=== PATIENT | male | born 1950 | race Caucasian/White ===

== ENCOUNTER → 2018-04-03 14:59 | Outpatient (CLI) | payer MEDICARE, OTHER, SELFPAY ==
[2018-04-03 16:45] LABS: Prostate Specific Antigen 0.459 ng/mL (0.10-4.00)
== END ==
PROVIDERS: Family Provider Internal Medicine; PCP Internal Medicine; Visit Provider Radiology Radiation Oncology
DX: C61 Malignant neoplasm of prostate (principal)
CPT/HCPCS: 36415; 84153

== ENCOUNTER → 2019-01-30 07:58 | Outpatient (CLI) | payer MEDICARE, OTHER, SELFPAY ==
[2019-01-30 09:48] LABS: Hemoglobin A1C% w Est Avg Glu 7.1 % (4.0-6.0)
[2019-01-30 10:05] LABS: Alanine Aminotransferase 22 IU/L (21-72); Albumin 4.1 g/dL (3.5-5.0); Albumin Globulin Ratio 1.5 (1.0-2.8); Alkaline Phosphatase 75 U/L (38-126); Aspartate Aminotransferase 16 IU/L (17-59); Bilirubin Total 1.2 mg/dL (0.2-1.3); Blood Urea Nitrogen 19 mg/dL (9-20); Calcium 9.2 mg/dL (8.4-10.2); Carbon Dioxide 28 mmol/L (22-32); Chloride 102 mmol/L (98-107); Cholesterol 158 mg/dL (140-199); Estimated Glomerular Filt Rate > 60.0 mL/min (>60); Globulin 2.8 g/dL (1.7-4.1); Glucose 178 mg/dL (80-110); HDL Cholesterol 55 mg/dL (40-60); HEMOLYSIS < 15 (0-50); LDL Cholesterol Calculated 72 mg/dL (<100); Potassium 4.8 mmol/L (3.4-5.1); Sodium 138 mmol/L (137-145); Total Protein 6.9 g/dL (6.3-8.2); Triglycerides 156 mg/dL (35-150)
== END ==
PROVIDERS: PCP Internal Medicine; Visit Provider Internal Medicine
DX: C61 Malignant neoplasm of prostate (principal); E11.9 Type 2 diabetes mellitus without complications; E78.5 Hyperlipidemia, unspecified; I10 Essential (primary) hypertension
CPT/HCPCS: 36415; 80053; 80061; 83036; 84153

== ENCOUNTER → 2020-02-11 08:57 | Outpatient (CLI) | payer MEDICARE, OTHER, SELFPAY ==
[2020-02-11 09:54] LABS: Hemoglobin A1C% w Est Avg Glu 9.2 % (4.0-6.0)
[2020-02-11 10:19] LABS: Alanine Aminotransferase 48 IU/L (<50); Albumin 4.2 g/dL (3.5-5.0); Albumin Globulin Ratio 1.4 (1.0-2.8); Alkaline Phosphatase 85 U/L (38-126); Aspartate Aminotransferase 41 IU/L (17-59); BUN Creatinine Ratio 16.2 (6-22); Bilirubin Total 0.9 mg/dL (0.2-1.3); Blood Urea Nitrogen 18 mg/dL (9-20); Calcium 9.1 mg/dL (8.4-10.2); Carbon Dioxide 25 mmol/L (22-32); Chloride 101 mmol/L (98-107); Cholesterol 213 mg/dL (140-199); Estimated Glomerular Filt Rate > 60.0 mL/min (>60); Glucose 258 mg/dL (80-110); HDL Cholesterol 42 mg/dL (40-60); HEMOLYSIS < 15 (0-50); LDL Cholesterol Calculated 115 mg/dL (<100); Potassium 4.4 mmol/L (3.4-5.1); Sodium 137 mmol/L (137-145); Total Protein 7.2 g/dL (6.3-8.2); Triglycerides 282 mg/dL (35-150)
[2020-02-11 10:49] LABS: Prostate Specific Antigen 1.54 ng/mL (0.10-4.00)
== END ==
PROVIDERS: PCP Internal Medicine; Referring Provider Internal Medicine; Visit Provider Internal Medicine
DX: C61 Malignant neoplasm of prostate (principal); E11.9 Type 2 diabetes mellitus without complications; E78.5 Hyperlipidemia, unspecified; I10 Essential (primary) hypertension
CPT/HCPCS: 36415; 80053; 80061; 83036; 84153

== ENCOUNTER → 2020-05-06 13:37 | Outpatient (CLI) | payer MEDICARE, OTHER, SELFPAY ==
[2020-05-06 14:43] LABS: Hemoglobin A1C% w Est Avg Glu 8.6 % (4.0-6.0)
[2020-05-06 15:16] LABS: BUN Creatinine Ratio 18.6 (6-22); Blood Urea Nitrogen 19 mg/dL (9-20); Calcium 9.3 mg/dL (8.4-10.2); Carbon Dioxide 28 mmol/L (22-32); Chloride 102 mmol/L (98-107); Estimated Glomerular Filt Rate > 60.0 mL/min (>60); Glucose 180 mg/dL (80-110); HEMOLYSIS < 15 (0-50); Potassium 5.1 mmol/L (3.4-5.1); Sodium 137 mmol/L (137-145)
== END ==
PROVIDERS: PCP Internal Medicine; Referring Provider Internal Medicine; Visit Provider Internal Medicine
DX: E11.65 Type 2 diabetes mellitus with hyperglycemia (principal)
CPT/HCPCS: 36415; 80048; 83036

== ENCOUNTER → 2020-08-17 11:21 | Outpatient (CLI) | payer MEDICARE, OTHER, SELFPAY ==
[2020-08-17 12:05] LABS: BUN Creatinine Ratio 16.7 (6-22); Blood Urea Nitrogen 18 mg/dL (9-20); Calcium 8.9 mg/dL (8.4-10.2); Carbon Dioxide 29 mmol/L (22-32); Chloride 101 mmol/L (98-107); Estimated Glomerular Filt Rate > 60.0 mL/min (>60); Glucose 234 mg/dL (80-110); HEMOLYSIS < 15 (0-50); Potassium 4.8 mmol/L (3.4-5.1); Sodium 135 mmol/L (137-145)
[2020-08-17 12:10] LABS: Hemoglobin A1C% w Est Avg Glu 8.4 % (4.0-6.0)
== END ==
PROVIDERS: PCP Internal Medicine; Referring Provider Internal Medicine; Visit Provider Internal Medicine
DX: E11.65 Type 2 diabetes mellitus with hyperglycemia (principal); I10 Essential (primary) hypertension
CPT/HCPCS: 36415; 80048; 83036

== ENCOUNTER → 2020-11-12 08:49 | Outpatient (CLI) | payer MEDICARE, OTHER, SELFPAY ==
[2020-11-12 10:45] LABS: Alanine Aminotransferase 30 IU/L (<50); Albumin Globulin Ratio 1.3 (1.0-2.8); Alkaline Phosphatase 77 U/L (38-126); Aspartate Aminotransferase 29 IU/L (17-59); BUN Creatinine Ratio 15.2 (6-22); Bilirubin Total 1.3 mg/dL (0.2-1.3); Blood Urea Nitrogen 17 mg/dL (9-20); Calcium 9.1 mg/dL (8.4-10.2); Carbon Dioxide 28 mmol/L (22-32); Chloride 102 mmol/L (98-107); Cholesterol 184 mg/dL (140-199); Estimated Glomerular Filt Rate > 60.0 mL/min (>60); Globulin 3.2 g/dL (1.7-4.1); Glucose 219 mg/dL (80-110); HDL Cholesterol 48 mg/dL (40-60); HEMOLYSIS < 15 (0-50); LDL Cholesterol Calculated 100 mg/dL (<100); Potassium 4.5 mmol/L (3.4-5.1); Sodium 136 mmol/L (137-145); Total Protein 7.2 g/dL (6.3-8.2); Triglycerides 179 mg/dL (35-150)
[2020-11-12 14:29] LABS: Hemoglobin A1C% w Est Avg Glu 8.9 % (4.0-6.0)
== END ==
PROVIDERS: PCP Internal Medicine; Referring Provider Internal Medicine; Visit Provider Internal Medicine
DX: E11.65 Type 2 diabetes mellitus with hyperglycemia (principal); E78.5 Hyperlipidemia, unspecified; I10 Essential (primary) hypertension
CPT/HCPCS: 36415; 80053; 80061; 83036

== ENCOUNTER → 2020-11-20 10:17 | Outpatient (CLI) | payer MEDICARE, OTHER, SELFPAY ==
[2020-11-20] MEDS: COVID-19 VACC #1, MRNA(MOD) 100 MCG/0.5 ML VIAL IM (10:28)
== END ==
PROVIDERS: PCP Internal Medicine; Visit Provider Internal Medicine
DX: Z23 Encounter for immunization (principal)
CPT/HCPCS: 0011A; 91301

== ENCOUNTER → 2020-12-18 10:02 | Outpatient (CLI) | payer MEDICARE, OTHER, SELFPAY ==
[2020-12-18] MEDS: COVID-19 VACC #2, MRNA(MOD) 100 MCG/0.5 ML VIAL IM (10:14)
== END ==
PROVIDERS: PCP Internal Medicine; Visit Provider Internal Medicine
DX: Z23 Encounter for immunization (principal)
CPT/HCPCS: 0012A; 91301

== ENCOUNTER → 2021-01-13 11:11 | Outpatient (CLI) | payer MEDICARE, OTHER, SELFPAY ==
[2021-01-13 13:31] LABS: Hemoglobin A1C% w Est Avg Glu 9.5 % (4.0-6.0)
[2021-01-13 13:50] LABS: BUN Creatinine Ratio 15.9 (6-22); Blood Urea Nitrogen 17 mg/dL (9-20); Calcium 9.3 mg/dL (8.4-10.2); Carbon Dioxide 25 mmol/L (22-32); Chloride 102 mmol/L (98-107); Estimated Glomerular Filt Rate > 60.0 mL/min (>60); Glucose 230 mg/dL (80-110); HEMOLYSIS < 15 (0-50); Sodium 136 mmol/L (137-145)
== END ==
PROVIDERS: PCP Internal Medicine; Referring Provider Internal Medicine; Visit Provider Internal Medicine
DX: E11.9 Type 2 diabetes mellitus without complications (principal); E78.5 Hyperlipidemia, unspecified; I10 Essential (primary) hypertension
CPT/HCPCS: 36415; 80048; 83036

== ENCOUNTER → 2021-04-07 11:31 | Outpatient (CLI) | payer MEDICARE, OTHER, SELFPAY ==
[2021-04-07 13:33] LABS: Hemoglobin A1C% w Est Avg Glu 7.1 % (4.0-6.0)
[2021-04-07 13:55] LABS: BUN Creatinine Ratio 17.9 (6-22); Blood Urea Nitrogen 20 mg/dL (9-20); Calcium 9.3 mg/dL (8.4-10.2); Carbon Dioxide 25 mmol/L (22-32); Chloride 107 mmol/L (98-107); Estimated Glomerular Filt Rate > 60.0 mL/min (>60); Glucose 148 mg/dL (80-110); HEMOLYSIS < 15 (0-50); Potassium 4.8 mmol/L (3.4-5.1); Sodium 139 mmol/L (137-145)
== END ==
PROVIDERS: PCP Internal Medicine; Referring Provider Internal Medicine; Visit Provider Internal Medicine
DX: E11.9 Type 2 diabetes mellitus without complications (principal); I10 Essential (primary) hypertension
CPT/HCPCS: 36415; 80048; 83036

== ENCOUNTER 2021-05-25 11:02 | Emergency (ER) | payer MEDICARE, OTHER, SELFPAY ==
[2021-05-25] VITALS (9 sets, daily range): BP systolic 145–162; BP diastolic 63–74; PULSE 64–75; RESP 16–17; TEMP 36.9; O2SAT 95–97; BMI 38.0
--- NOTE | 2021-05-25 11:19 | DI.RAD.S_ITS ---
PROCEDURE: XR CHEST 1V INDICATIONS: Coughing up blood TECHNIQUE: One view of the chest was acquired. COMPARISON: [facility], CT, PE STUDY (CTA CHEST), 02/17/2014, 7:56. [facility], CR, CHEST 2 VIEW, 11/23/2011, 10:19. FINDINGS: Surgical changes and devices: None. Lungs and pleura: No large pneumothorax or large pleural effusions are seen. There is a 2 cm poorly defined nodular opacity seen within the left perihilar lung. Mediastinum: Mediastinal contours appear normal. Heart size is normal. Bones and chest wall: No suspicious bony lesions. Age-appropriate bony degenerative changes are seen. Overlying soft tissues appear unremarkable. IMPRESSION: 2 cm left perihilar opacity, which may represent a neoplastic nodule or potentially infection. For this patient's presenting history of hemoptysis, please consider a dedicated chest CT with IV contrast for further evaluation. Dictated by: Israel Morrow M.D. on 05/25/2021 at 10:32 Approved by: Israel Morrow M.D. on 05/25/2021 at 10:34
--- NOTE | 2021-05-25 11:48 | PC.NURSE ---
Patient states he had an episode of coughing and spitting up blood on Monday am. When asked how much blood came up during his coughing spell he states 1/2 cup. When asked to clarify, he states 1/2 cup of blood with no sputum. Symptoms resolved Monday, no issues on Monday but coughing and spitting up blood started again at 0230 this morning. Patient again states he coughed up 1/2 cup of blood this morning. Denies nausea, denies diarrhea. States he got in the hot tub at 0700 this morning and starting coughing up blood again.
[2021-05-25 11:52] LABS: Add Manual Diff / Slide Review NO; Basophils Absolute Auto 100 /uL (0-100); Basophils Percent Auto 0.9 % (0-2); Eosinophils Absolute Auto 100 /uL (0-450); Eosinophils Percent Auto 2.1 % (2-4); Hematocrit 40.3 % (41-53); Hemoglobin 13.2 g/dL (13.5-17.5); Lymphocytes Absolute Auto 1500 /uL (1100-4500); Lymphocytes Percent Auto 25.9 % (25-40); Mean Corpuscular HGB Conc 32.8 % (30-36); Mean Corpuscular Hemoglobin 29.8 PG (26-34); Monocytes Absolute Auto 400 /uL (0-900); Monocytes Percent Auto 6.8 % (3-14); Neutrophils Absolute Auto 3800 /uL (1500-7000); Neutrophils Percent Auto 64.3 % (50-75); Platelet Count 168 X10^3/uL (150-400); Red Blood Cell Count 4.43 X10^6/uL (4.5-5.9); White Blood Cell Count 5.9 X10^3/uL (4.5-11.0)
--- NOTE | 2021-05-25 11:53 | ED_ITS ---
HPI - GI Bleed General Chief complaint: GI Bleed Stated complaint: coughing up blood this morning Time Seen by Provider: 05/25/21 11:19 Source: patient Mode of arrival: Ambulatory Limitations: no limitations History of Present Illness HPI Narrative: Patient is a 71-year-old male. Kti-mxzvbts-xdsdkywwt diabetic. Not on anticoagulation. Does not use nonsteroidal anti-inflammatories on a regular basis was here for evaluation of coughing up blood. He is not vomiting blood. He states that on Monday he had sensations like he needed to clear his throat. He coughed. He states that he coughed up blood at that time. He had no chest pain. No shortness of breath. Things seem to improve. This morning he had a 2nd episode of the symptoms. Reports no change in bowel habits. No fevers. Related Data Home Medications Medication Instructions Recorded Confirmed CA PANTOTHENATE/FOLIC ACID/VIT 1 tab PO QDAY #0 08/17/11 04/19/21 (MULTIVITAMIN) [GLUCOSAMINE CHONDROI] 1 tab PO Q DAY #0 08/17/11 04/19/21 aspirin 81 mg tablet,delayed 162 mg PO Q DAY #0 08/17/11 04/19/21 release Previous Rx's Medication Instructions Recorded Disabled Parking Permit ea #1 03/06/17 metformin 500 mg tablet 1,000 mg PO BIDCC #360 tab 07/14/20 (Glucophage) alprazolam 0.5 mg tablet See Rx Instructions PO TID PRN #30 08/17/20 tab igvrycho-ghxuonjvx-gaypvzmva 3.5 2 - 3 drp OTIC (EAR) TID PRN #10 ml 11/17/20 mg-10,000 unit/mL-1 % ear drops,susp pioglitazone 30 mg tablet 30 mg PO DAILY #90 tab 11/17/20 glipizide 10 mg tablet 10 mg PO BID #60 tab 01/18/21 carvedilol 25 mg tablet (Coreg) 25 mg PO BID #180 tabs 02/09/21 rosuvastatin 20 mg tablet (Crestor) 20 mg PO Q DAY #90 tab 03/24/21 Allergies Allergy/AdvReac Type Severity Reaction Status Date / Time No Known Drug Allergies Allergy Verified 05/25/21 11:11 Review of Systems Constitutional Constitutional: Denies fever(s) Cardiovascular Cardiovascular: Denies chest pain and Denies dyspnea Respiratory Respiratory: Reports as per HPI, Reports cough and Denies dyspnea Gastrointestinal Gastrointestinal: Reports system reviewed and no additional complaints, except as documented, Denies melena, Denies hematochezia, Denies nausea and Denies vomiting Genitourinary Genitourinary: Reports system reviewed and no additional complaints, except as documented Integumentary/Breasts Skin/Breast: Reports system reviewed and no additional complaints, except as documented Hematologic/Lymphatic On Anticoagulants: No Patient History Medical History Diabetic peripheral neuropathy History of adenomatous polyp of colon (07/19/11) Hyperlipidemia (07/19/11) Hypertension (07/19/11) Malignant neoplasm of prostate (08/23/16) Renal cell carcinoma (~2010) Type 2 diabetes mellitus with hyperglycemia Type 2 diabetes mellitus without complication, without long-term current use of insulin (10/04/17) Surgical History (Updated 01/02/18 @ 05:48 by Kayden Doyle MD) History of nephrectomy History of spinal fusion History of vasectomy Status post appendectomy Status post tonsillectomy and adenoidectomy Family History (Updated 08/23/16 @ 00:00 by Conversion Provider) Father Family hx of lung cancer Mother Family history of diabetes mellitus (DM) High cholesterol Heart disease Social History Smoking Status: Former smoker Smoking Status: Former smoker alcohol intake frequency: 0-2 drinks per day Substance Use Type: does not use Exam Initial Vital Signs Initial Vital Signs: Vital Signs Temperature 98.4 F 05/25/21 11:05 Pulse Rate 75 05/25/21 11:05 Respiratory Rate 17 05/25/21 11:05 Blood Pressure 157/73 H 05/25/21 11:05 Pulse Oximetry 96 05/25/21 11:05 Const General: cooperative, healthy appearing, comfortable and well developed Limitations: mental status not altered [facility] Head: normal to inspection and normocephalic Resp Effort & Inspection: normal respiratory effort Auscultation: clear to auscultation bilaterally Cardio Rate: regular rate Rhythm: regular rhythm GI Inspection: normal to inspection and non-distended Palpation: No firm and No tender Back/Spine/Pelvis Back: normal to inspection Skin General: no rashes or lesions noted Lesions: no lesions Rashes: no rashes Neuro General: patient alert, patient awake and patient oriented x3 Extrem General: normal to inspection Psych Appearance: grossly normal and well kempt Course Orders Ordered: Discontinued Medications Sodium Chloride (Normal Saline 0.9%) 1,000 mls @ 500 mls/hr IV BOLUS ONE Stop: 05/25/21 13:52 Last Infusion: 05/25/21 13:57 Dose: 0 mls/hr Documented by: Admin: 05/25/21 13:02 Dose: 500 mls/hr Documented by: JULIAN Vital Signs Vital signs: Vital Signs - 8 hr 05/25/21 11:05 05/25/21 11:08 05/25/21 11:09 Temperature 98.4 F Pulse Rate 75 69 Respiratory Rate 17 Blood Pressure 157/73 H 157/73 H Pulse Oximetry 96 97 05/25/21 11:21 05/25/21 11:30 05/25/21 11:31 Temperature Pulse Rate 68 70 68 Respiratory Rate Blood Pressure 154/74 H 162/74 H Pulse Oximetry 97 96 96 05/25/21 12:00 Temperature Pulse Rate 67 Respiratory Rate Blood Pressure Pulse Oximetry 97 MDM - GI Bleed Lab Data Attestation: I reviewed the patient's lab results. Result diagrams: 05/25/21 11:40 05/25/21 11:40 Labs: Lab Results 05/25/21 05/25/21 05/25/21 Range/Units 11:40 11:40 11:40 WBC 5.9 (4.5-11.0) X10^3/uL RBC 4.43 L (4.5-5.9) X10^6/uL Hgb 13.2 L (13.5-17.5) g/dL Hct 40.3 L (41-53) % MCV 91.0 (80-100) fL MCH 29.8 (26-34) PG MCHC 32.8 (30-36) % RDW 15.0 H (11.6-14.8) % Plt Count 168 (150-400) X10^3/uL Neut % (Auto) 64.3 (50-75) % Lymph % (Auto) 25.9 (25-40) % Milam % (Auto) 6.8 (3-14) % Eos % (Auto) 2.1 (2-4) % Baso % (Auto) 0.9 (0-2) % Neut # (Auto) 3800 (5272-2341) /uL Lymph # (Auto) 1500 (3824-2197) /uL Milam # (Auto) 400 (0-900) /uL Eos # (Auto) 100 (0-450) /uL Baso # (Auto) 100 (0-100) /uL Sodium 138 (137-145) mmol/L Potassium 4.7 (3.4-5.1) mmol/L Chloride 105 (98-107) mmol/L Carbon Dioxide 26 (22-32) mmol/L BUN 16 (9-20) mg/dL Creatinine 0.98 (0.66-1.25) mg/dL Estimated GFR > 60.0 (>60) mL/min BUN/Creatinine Ratio 16.3 (6-22) Glucose 144 H (80-110) mg/dL Calcium 9.2 (8.4-10.2) mg/dL Total Bilirubin 1.5 H (0.2-1.3) mg/dL AST 26 (17-59) IU/L ALT 25 (<50) IU/L Alkaline Phosphatase 72 (38-126) U/L Total Protein 7.5 (6.3-8.2) g/dL Albumin 4.2 (3.5-5.0) g/dL Globulin 3.3 (1.7-4.1) g/dL Albumin/Globulin Ratio 1.3 (1.0-2.8) Blood Type A Positive Antibody Screen Negative Urine Dip Bedside Urine Glucose Negative Bedside Urine Bilirubin - Negative Bedside Urine Ketone - Negative Urine Specific Gill 1.015 Bedside Urine Occult Blood - Negative Bedside Urine pH 6.0 Bedside Urine Protein - Negative Bedside Urine Urobilinogen - Negative Bedside Urine Nitrite - Negative Bedside Urine Leukocytes - Negative Esterase Imaging Data Chest x-ray: Radiologist's Impression: [address] [id number] ReportSigned Patient: Ac May JMR#: [id number]: 9Acct:[id number]/Sex: 71 / MDate of Service: 05/25/21Loc: EDAccession Number: [id number] Procedure: XR chest 1V Ordering Provider: Stevie Lama D.O. PROCEDURE: XR CHEST 1V INDICATIONS: Coughing up blood TECHNIQUE: One view of the chest was acquired. COMPARISON: [facility], CT, PE STUDY (CTA CHEST), 02/17/2014, 7:56. [facility], CR, CHEST 2 VIEW, 11/23/2011, 10:19. FINDINGS: Surgical changes and devices: None. Lungs and pleura: No large pneumothorax or large pleural effusions are seen. There is a 2 cm poorly defined nodular opacity seen within the left perihilar lung. Mediastinum: Mediastinal contours appear normal. Heart size is normal. Bones and chest wall: No suspicious bony lesions. Age-appropriate bony d egenerative changes are seen. Overlying soft tissues appear unremarkable. IMPRESSION: 2 cm left perihilar opacity, which may represent a neoplastic nodule or potentially infection. For this patient's presenting history of hemoptysis, please consider a dedicated chest CT with IV contrast for further evaluation. Dictated by: Israel Morrow M.D. on 05/25/2021 at 10:32 Approved by: Israel Morrow M.D. on 05/25/2021 at 10:34 CT scan - chest: Radiologist's Impression: [address] [id number] Scan ReportSigned Patient: Ac May [facility]#: [id number]: 9Acct:[id number]/Sex: 71 / MDate of Service: 05/25/21Loc: EDAccession Number: [id number] Procedure: CT angio chest PE protocol Ordering Provider: Stevie Lama D.O. PROCEDURE: CT ANGIO CHEST PE PROTOCOL INDICATIONS: Chest pain, shortness of breath, tachycardia TECHNIQUE: After the administration of intravenous contrast, 2 mm thick sections acquired from the pulmonary apices to the posterior costophrenic angles. Maximum intensity projection (MIP) coronal and sagittal reformats were then acquired through the thorax. For radiation dose reduction, the following was used: automated exposure control, adjustment of mA and/or kV according to patient size. COMPARISON: [facility], CR, XR CHEST 1V, 05/25/2021, 11:22. [facility], CT, PE STUDY (CTA CHEST), 02/17/2014, 7:56. [facility], CT, CT CHANCE, 12/03/2015, 13:05. FINDINGS: Image quality: Excellent. Pulmonary arteries: Pulmonary arteries are normal in size, and demonstrate no intraluminal filling defects to suggest central pulmonary embolism. Lungs and pleura: Bilateral pulmonary mass lesions present. Largest on the right measures 2.7 x 3.5 cm in the right lower lobe, the largest on the left measures 1.9 x 1.7 cm. There are greater than 10 pulmonary nodules in total of varying sizes. Mediastinum: Heart size is normal, without pericardial effusion. No mediastinal or hilar adenopathy. Thoracic aorta is normal in caliber and enhancement. Esophagus is normal in caliber, without hiatal hernia. Scattered mediastinal and axillary lymph nodes present without enlargement. Bones and chest wall: Osteolytic metastatic lesion involving the right posterior 4th rib measures 3.1 x 4.5 cm Abdomen: Partially imaged soft tissue mass lesion centered in the left adrenal gland measures 9.6 x 6.7 cm. Partially visualized gallbladder shows small dependent calcified gallstone without CT evidence of acute cholecystitis. IMPRESSION: 1. No evidence of pulmonary embolism, aortic dissection or aneurysm. 2. Bilateral pulmonary masses, left adrenal mass, and right 4th rib osteolytic mass consistent with metastatic disease. 3. Incidental cholelithiasis without CT evidence of acute cholecystitis. Approved by: Spencer Castaneda M.D. on 05/25/2021 at 12:00 ECG Data Attestation: I personally reviewed and interpreted this ECG as follows: Interpretation: Sinus rhythm Ventricular rate is 67 Normal axis Normal QRS Normal QTC No ST T wave changes MDM Narrative Medical decision making narrative: Patient is stable. No respiratory distress. Not anemic. Vital signs unremarkable. CT scan of the chest is concerning for metastatic disease. I did discuss this with him. I suspect that this is why he is having the blood tinged sputum. I also discussed the case with his primary doctor's nurse. They are going to contact the patient to get him in for follow- up within the next couple days. No indication for emergent admission to the hospital. He was told that this is a issue that does need urgent follow-up. He expressed understanding of this. He has had cancer in the past. He had renal cancer which resulted in a nephrectomy and also prostate cancer. He was given strict return precautions and follow-up instructions. He expressed understanding and agreement. Discharge Plan Departure Patient Disposition: Home Clinical Impression: Hemoptysis, Lung mass Instructions: DI for Hemoptysis Activity Restrictions/Additional Instructions: The findings on the CT scan of your lungs today are concerning. They did notice masses in both your lungs. These findings are a concern for malignancy. I did contact your primary doctor's office and you should be receiving a call from them within the next 24 hours. Continue all of your medications as directed. Return to the emergency department for any new or worsening symptoms. Prescriptions: No Action aspirin 81 MG tablet,delayed release (DR/EC) 162 mg PO Q DAY Qty: 0 RF: 0 CA PANTOTHENATE/FOLIC ACID/VIT (MULTIVITAMIN) 1 tab PO QDAY Qty: 0 RF: 0 [GLUCOSAMINE CHONDROI] 1 tab PO Q DAY Qty: 0 RF: 0 Disabled Parking Permit Qty: 1 RF: 0 metformin [Glucophage] 500 mg tablet 1,000 mg PO BIDCC Qty: 360 RF: 3 carvedilol [Coreg] 25 mg tablet 25 mg PO BID Qty: 180 RF: 3 rosuvastatin [Crestor] 20 mg tablet 20 mg PO Q DAY Qty: 90 RF: 3 pioglitazone 30 mg tablet 30 mg PO DAILY Qty: 90 RF: 3 ahhzytrd-obfeqbhbr-HD 3.5-10,000-1 mg/mL-unit/mL-% drops,suspension 2 - 3 drp otic (ear) TID PRN (Reason: Cerumen Impaction) Qty: 10 RF: 3 glipizide 10 mg tablet 10 mg PO BID Qty: 60 RF: 8 alprazolam 0.5 mg tablet See Rx Instructions PO TID PRN (Reason: anxiety) Qty: 30 RF: 2 Referrals: Kayden Doyle MD [Primary Care Provider] -
[2021-05-25 12:19] LABS: Alanine Aminotransferase 25 IU/L (<50); Albumin 4.2 g/dL (3.5-5.0); Albumin Globulin Ratio 1.3 (1.0-2.8); Alkaline Phosphatase 72 U/L (38-126); Aspartate Aminotransferase 26 IU/L (17-59); BUN Creatinine Ratio 16.3 (6-22); Bilirubin Total 1.5 mg/dL (0.2-1.3); Blood Urea Nitrogen 16 mg/dL (9-20); Calcium 9.2 mg/dL (8.4-10.2); Carbon Dioxide 26 mmol/L (22-32); Chloride 105 mmol/L (98-107); Estimated Glomerular Filt Rate > 60.0 mL/min (>60); Globulin 3.3 g/dL (1.7-4.1); Glucose 144 mg/dL (80-110); HEMOLYSIS < 15 (0-50); Potassium 4.7 mmol/L (3.4-5.1); Sodium 138 mmol/L (137-145); Total Protein 7.5 g/dL (6.3-8.2)
[2021-05-25] MEDS: SODIUM CHLORIDE 0.9% 1,000 ML 500 ML IV (13:02)
== END 2021-05-25 13:59 | disposition home or self-care (01) ==
PROVIDERS: Emergency Provider Emergency Medicine; PCP Internal Medicine
DX: R04.2 Hemoptysis (principal); R91.8 Other nonspecific abnormal finding of lung field; R07.9 Chest pain, unspecified
CPT/HCPCS: 36415; 71045; 71275; 80053; 81003; 85025; 86850; 86900; 86901; 93005; 93010; 96360; 99284

== ENCOUNTER → 2021-05-28 14:38 | Outpatient (CLI) | payer MEDICARE, OTHER, SELFPAY ==
[2021-05-28 16:14] LABS: Prostate Specific Antigen 2.06 ng/mL (0.10-4.00)
== END ==
PROVIDERS: PCP Internal Medicine; Referring Provider Internal Medicine; Visit Provider Internal Medicine
DX: C61 Malignant neoplasm of prostate (principal)
CPT/HCPCS: 36415; 84153

== ENCOUNTER → 2021-06-02 12:02 | Outpatient (CLI) | payer MEDICARE, OTHER, SELFPAY ==
--- NOTE | 2021-06-02 12:03 | DI.CT.S_ITS ---
PROCEDURE: CT ABDOMEN PELVIS W CON INDICATIONS: lung masses TECHNIQUE: After the administration of oral and intravenous contrast, axial sections were acquired from the lung bases to the pubic symphysis. Coronal and sagittal reformats were performed. For radiation dose reduction, the following was used: automated exposure control, adjustment of mA and/or kV according to patient size. COMPARISON:[facility], CT, CT ANGIO CHEST PE PROTOCOL, 05/25/2021, 12:30. [facility], CT, ABDOMEN/PELVIS WITH CONTRAST, 07/22/2011, 15:19. FINDINGS: Image quality: Excellent. Lung bases: Bibasilar pulmonary nodules are present, as before, largest of which measure 37 mm within the right lower lobe posteriorly, and 37 mm within the medial left lung base, which are slightly increased in size. There is calcification of the coronary vasculature. Heart: No significant findings. ABDOMEN: Liver: Unremarkable. Gallbladder: Demonstrates multiple calculi within its lumen Biliary ducts: Unremarkable. Pancreas: Unremarkable. Spleen: Unremarkable. Adrenal Glands: Unremarkable. Kidneys and Ureters: Right kidney is grossly unremarkable. Left kidney is absent. There is a left renal fossa mass which demonstrates heterogeneous enhancement, as before, currently measuring roughly 98 mm anteroposterior, which is not significantly changed. Stomach and Bowel: Stomach, small bowel loops, and colon are unremarkable. Peritoneum: No abnormal intraperitoneal fluid. No free air. Ventral Wall: No hernia. Abdominal Nodes: No retroperitoneal or mesenteric adenopathy by size criteria. Vessels: Aorta and inferior vena cava are normal in size. PELVIS: Pelvic Organs: Unremarkable. Bladder: Unremarkable. Pelvic Nodes: No enlarged lymph nodes. Miscellaneous: No inguinal hernias are seen. Bones: Moderate kyphosis at the thoracolumbar junction. IMPRESSION: 1. Left renal fossa mass. 2. Increased bilateral lower lung pulmonary nodules. 3. Coronary artery disease. Dictated by: Hank Fonseca M.D. on 06/02/2021 at 15:30 Approved by: Hank Fonseca M.D. on 06/02/2021 at 15:50
--- NOTE | 2021-06-02 12:03 | DI.CT.S_ITS ---
PROCEDURE: CT HEAD/BRAIN WO/W CON INDICATIONS: lung masses TECHNIQUE: 4.5 mm thick angled axial sections acquired from the foramen magnum to the vertex both before and after the administration of intravenous contrast, with coronal and sagittal reformats. For radiation dose reduction, the following was used: automated exposure control, adjustment of mA and/or kV according to patient size. COMPARISON: None. FINDINGS: Image quality: Excellent. CSF spaces: Basal cisterns are patent. No extra-axial fluid collections. Ventricles are symmetric in size and shape. Brain: No midline shift. No intracranial bleeds or masses. No abnormal intracranial enhancement. There is mild cerebral volume loss for age. There is mild periventricular white matter chronic small vessel ischemic change. There is intracranial internal carotid artery atherosclerosis. Skull and face: Calvarium and visualized facial bones appear intact, without suspicious lesions. Sinuses: Polypoid mucosal thickening noted in the right maxillary sinus. The mastoids are clear. IMPRESSION: 1. No acute intracranial disease process. 2. No abnormal intracranial mass or suspicious postcontrast enhancement. 3. Mild, diffuse cerebral volume loss. 4. Mild periventricular and subcortical white matter chronic microvascular ischemic change. 5. Right maxillary sinusitis. Dictated by: Leticia Price MD, PhD on 06/02/2021 at 15:32 Approved by: Leticia Price MD, PhD on 06/02/2021 at 15:36
== END ==
PROVIDERS: PCP Internal Medicine; Referring Provider Internal Medicine; Visit Provider Internal Medicine
DX: R91.8 Other nonspecific abnormal finding of lung field (principal); C79.9 Secondary malignant neoplasm of unspecified site; N28.89 Other specified disorders of kidney and ureter; I25.10 Atherosclerotic heart disease of native coronary artery without angina pectoris; I65.29 Occlusion and stenosis of unspecified carotid artery; J32.0 Chronic maxillary sinusitis
CPT/HCPCS: 70470; 74177; Q9967

== ENCOUNTER 2021-06-24 07:15 | Outpatient (CLI) | payer MEDICARE, OTHER, SELFPAY ==
[2021-06-24] VITALS (10 sets, daily range): BP systolic 122–150; BP diastolic 61–81; PULSE 68–77; RESP 12–18; TEMP 36.6–37; O2SAT 96–100; BMI 38.0
--- NOTE | 2021-06-24 | PATH_ITS ---
[facility] Accession Number: [id number] . 01 Material submitted: . adrenal gland - LEFT ADRENAL GLAND MASS . 01 Clinical history: . A: POSSIBLE METASTATIC DZ . 02 Diagnosis: Left Adrenal Gland Mass, Needle Core Biopsy: Positive for carcinoma, immunophenotypically consistsent with metastasis of known prior renal cell carcinoma. MRV 06/29/2021 1336 Local . 02 Comment: As part of routine quality assurance lab technician, Dr. Franco has reviewed this case and agrees with the diagnosis of metastatic renal cell carcinoma. . 02 Electronically signed: . Yaya Ch MD, PhD, Pathologist NPI- [id number] . 01 Gross description: . LEFT ADRENAL GLAND MASS: Received in formalin is 1 fragment(s) of cevallos, soft tissue measuring 0.5 x 0.1 x 0.1 cm submitted entirely in 1 cassette(s) /MARGIE 06/24/2021 2311 Local . 02 Microscopic: . Sections are of fibrotic stroma infiltrated by mildly atypical epithelioid cells in single cells and small clusters. Some cells show clearing of the cytoplasm with prominent nucleoli. No adrenal parenchyma is identified. To further classify the neoplastic cells, a panel of immunohistochemical stains is performed (each with an appropriately positive control). The lesional cells are strongly and diffusely positive for NORMA, PAX8 and CD10 immunoreactivity. The lesional cells are negative for markers of specific differentiation including lung (TTF1, napsin A) and prostate (PSA). Adrenal markers (inhibin, synaptophysin) are negative for immunoreactivity. The overall morphology and immunophenotype are consistent with metastatic renal cell carcinoma. . * This test was developed and its performance characteristics determined by [facility]. It has not been cleared or approved by the U.S. Food and Drug Administration. The FDA has determined that such clearance or approval is not necessary. This test is used for clinical purposes. It should not be regarded as investigational or for research. . 02 Pathologist provided ICD-10: C79.72 . 02 CPT . 084351, B88297, K51287 Performed at: 01 [facility] [address] [id number] MD Rusty Ashby MD Phone: [phone] Performed at: 02 [facility] [id number] [place] [id number] MD Elsa Saez MD Phone: [phone]
--- NOTE | 2021-06-24 07:16 | DI.CT.S_ITS ---
PROCEDURE: CT BIOPSY ABDOMEN PERCUTANEOUS . INDICATIONS: left adrenal mass TECHNIQUE: The indications, alternatives, benefits, risks, and possible complications of the procedure were communicated to the patient. Informed written consent from the patient was obtained and placed in the chart. Continuous EKG and hemodynamic monitoring was started by trained personnel. The patient was brought to the CT suite and student services coordinator spiral CT imaging was performed with localization grid. The appropriate site for percutaneous access to the biopsy target was marked, was prepped and draped sterilely, and was infused with local anaesthesia. Under CT guidance, a core biopsy trocar and needle set was advanced to the biopsy target, and specimen(s) were obtained. Lesion is hypervascular with bleeding noted through the axis needle. Approximately 1 cubic centimeter of surgi- foam/normal saline slurry was injected through the axis needle to achieve hemostasis. The trocar and needle were then removed, and the patient was sent for post-procedure monitoring. COMPARISON: [facility], CT, CT ABDOMEN PELVIS W CON, 06/02/2021, 13:25. FINDINGS: Biopsy site: Left adrenal mass Needle: 20 gauge biopsy needle with introducer trocar. Number of passes: 3 Medications: 1% lidocaine for local anaesthesia Complications: None. IMPRESSION: Successful CT-guided biopsy of left adrenal mass. No immediate complications. Dictated by: Leticia Price MD, PhD on 06/24/2021 at 9:33 Approved by: Leticia Price MD, PhD on 06/24/2021 at 9:46
== END 2021-06-24 13:00 | disposition home or self-care (01) ==
LOC: OR 07:15
PROVIDERS: PCP Internal Medicine; Referring Provider Internal Medicine Medical Oncology; Visit Provider Internal Medicine Medical Oncology
PROC: BF25ZZZ Computerized Tomography (CT Scan) of Liver (ICD-10-PCS; CPT 47000; principal; 2021-06-24 08:00)
DX: C64.9 Malignant neoplasm of unspecified kidney, except renal pelvis (principal); E27.9 Disorder of adrenal gland, unspecified
CPT/HCPCS: 49180; 77012

== ENCOUNTER 2021-08-01 18:59 | Emergency (ER) | payer MEDICARE, OTHER, SELFPAY ==
[2021-08-01] VITALS (12 sets, daily range): BP systolic 131–163; BP diastolic 64–107; PULSE 91–108; RESP 22; TEMP 36.3; O2SAT 89–99
--- NOTE | 2021-08-01 19:12 | DI.RAD.S_ITS ---
PROCEDURE: XR KNEE LT 1TO2V INDICATIONS: pain/swelling felt a pop TECHNIQUE: 2 views of the knee were acquired. COMPARISON: None. FINDINGS: Bones: Moderately displaced distal femoral metaphyseal fracture. There is slightly overriding appearance. Posterior displacement of the distal fragment . There is comminuted appearance with a presumed cortical fracture fragment seen at the anterior aspect in the region of the suprapatellar recess. Scattered degenerative subchondral sclerosis and spurring. Mild medial joint space narrowing. Chronic appearing ossicles project adjacent to the medial and lateral femoral condyles. Soft tissues: Moderate joint effusion. IMPRESSION: Left distal femur fracture. Moderate joint effusion Dictated by: Ventura Kendall M.D. on 08/01/2021 at 19:36 Approved by: Ventura Kendall M.D. on 08/01/2021 at 19:39
--- NOTE | 2021-08-01 19:24 | ED_ITS ---
HPI - Extremity Injury (Lower) General Chief Complaint: Extremity Injury, Lower Stated Complaint: Lt knee collapsed Time Seen by Provider: 08/01/21 19:13 Source: patient Mode of arrival: Wheelchair History of Present Illness HPI Narrative: Patient is a 71-year-old male with history of papillary renal cell carcinoma with nephrectomy in 2010, with right rib osteolytic mass, left adrenal mass, hemoptysis no longer on aspirin, diabetes, HTN, Hyperlipidemia, presenting today with left knee pain. He says he went to the [facility] to get take out he was on the stairs he went to put his left foot down he felt and heard his knee shot are and pop. He says he did not fall or slip. He did not hit his head or lose consciousness. He had significant swelling in the left knee. He was unable to stand and bear all of his will wait on the right side so she crawled to his car and drove himself to the emergency department. Related Data Home Medications Medication Instructions Recorded Confirmed CA PANTOTHENATE/FOLIC ACID/VIT 1 tab PO QDAY #0 08/17/11 07/19/21 (MULTIVITAMIN) [GLUCOSAMINE CHONDROI] 1 tab PO Q DAY #0 08/17/11 07/19/21 calcium 500 mg tablet 500 mg DAILY 07/07/21 07/19/21 omega-3 fatty acids 500 mg PO DAILY 07/07/21 07/19/21 Previous Rx's Medication Instructions Recorded Disabled Parking Permit ea #1 03/06/17 metformin 500 mg tablet 1,000 mg PO BIDCC #360 tab 07/14/20 (Glucophage) pioglitazone 30 mg tablet 30 mg PO DAILY #90 tab 11/17/20 glipizide 10 mg tablet 10 mg PO BID #60 tab 01/18/21 carvedilol 25 mg tablet (Coreg) 25 mg PO BID #180 tabs 02/09/21 rosuvastatin 20 mg tablet (Crestor) 20 mg PO Q DAY #90 tab 03/24/21 alprazolam 0.5 mg tablet See Rx Instructions PO TID PRN #30 06/08/21 tab cabozantinib 20 mg tablet 40 mg PO DAILY #30 tab 07/07/21 cabozantinib 40 mg tablet 40 mg PO DAILY #30 tab 07/07/21 (Cabometyx) Allergies Allergy/AdvReac Type Severity Reaction Status Date / Time No Known Drug Allergies Allergy Verified 08/01/21 23:00 Review of Systems Review of Systems Narrative: GENERAL: Denies chills, fatigue, malaise, fever, sweats, travel HEENT: Denies sinus pain, ear pain, sore throat, difficulty swallowing, neck pain RESPIRATORY: Denies dyspnea, cough, wheezing, hemoptysis, sputum. CARDIOVASCULAR: Denies chest pain, palpitations, orthopnea, edema GASTROINTESTINAL: Denies nausea, vomiting, abdominal pain, diarrhea, cons tipation, melena. : Denies dysuria, frequency, incontinence, hematuria, urinary retention, flank pain. MUSCULOSKELETAL: See HPI SKIN: No rash, no erythema, no pruritus NEUROLOGIC: Denies weakness, dizziness, headache, numbness, change in speech, confusion PSYCHIATRIC: No concerning psychosocial issues. 12 point review of systems is negative except for those stated above and HPI Patient History Medical History (Updated 08/02/21 @ 06:52 by Betsey Odell DO) Diabetic peripheral neuropathy History of adenomatous polyp of colon (07/19/11) Hyperlipidemia (07/19/11) Hypertension (07/19/11) Malignant neoplasm of prostate (08/23/16) Metastatic renal cell carcinoma Renal cell carcinoma (~2010) Type 2 diabetes mellitus with hyperglycemia Type 2 diabetes mellitus without complication, without long-term current use of insulin (10/04/17) Surgical History (Updated 01/02/18 @ 05:48 by Kayden Doyle MD) History of nephrectomy History of spinal fusion History of vasectomy Status post appendectomy Status post tonsillectomy and adenoidectomy Family History (Updated 08/23/16 @ 00:00 by Conversion Provider) Father Family hx of lung cancer Mother Family history of diabetes mellitus (DM) High cholesterol Heart disease Social History household members: spouse Smoking Status: Former smoker Smoking Status: Former smoker alcohol intake frequency: 0-2 drinks per day Substance Use Type: does not use Exam Initial Vital Signs Initial Vital Signs: Vital Signs Temperature 97.3 F L 08/01/21 19:08 Pulse Rate 91 H 08/01/21 19:08 Respiratory Rate 22 08/01/21 19:08 Blood Pressure 153/67 H 08/01/21 19:08 Pulse Oximetry 99 08/01/21 19:08 GENERAL: Alert 71-year-old male appears in pain and having spasm in no acute distress. HEENT: Head atraumatic,EOMI, pupils reactive, face symmetric, moist mucous mem branes CARDIOVASCULAR: Regular rate and rhythm without murmurs, rubs or gallops. RESPIRATORY: Breath sounds equal bilaterally, no wheezes rales or rhonchi. ABDOMEN: Soft, nontender. Normoactive bowel sounds all 4 quadrants. No guarding or rebound. EXTREMITIES: Normal range of motion, no clubbing or edema. Neurovascularly intact Significant swelling left knee distal pedal pulse is intact. No pelvic tenderness. Right knee has an abrasion NEUROLOGICAL: Alert and oriented x4. SKIN: Abrasion right knee Course Orders Ordered: Sodium Chloride (Normal Saline 0.9%) 1,000 mls @ 125 mls/hr IV CONT NELI Last Admin: 08/02/21 00:28 Dose: 125 mls/hr Documented by: ARTEMIO Discontinued Medications Hydromorphone HCl (Hydromorphone 1 Mg Inj) 1 mg IV NOW ONE Stop: 08/01/21 19:36 Last Admin: 08/01/21 19:50 Dose: 1 mg Documented by: GLORIA Hydromorphone HCl (Hydromorphone 1 Mg Inj) 1 mg IV NOW ONE Stop: 08/01/21 21:16 Last Admin: 08/01/21 21:19 Dose: 1 mg Documented by: ZAHEER Hydromorphone HCl (Hydromorphone 1 Mg Inj) 1 mg IV NOW ONE Stop: 08/01/21 23:01 Last Admin: 08/01/21 23:40 Dose: 1 mg Documented by: ARTEMIO Hydromorphone HCl (Hydromorphone 1 Mg Inj) 1 mg IV NOW ONE Stop: 08/02/21 04:48 Last Admin: 08/02/21 04:57 Dose: 1 mg Documented by: GLORIA Vital Signs Vital signs: Vital Signs - 8 hr 08/01/21 23:00 08/01/21 23:30 08/01/21 23:31 Pulse Rate 105 H 106 H 108 H Respiratory Rate Blood Pressure 151/69 H 163/107 H 143/65 H Pulse Oximetry 95 97 97 08/02/21 00:00 08/02/21 00:30 08/02/21 00:31 Pulse Rate 104 H 112 H 120 H Respiratory Rate 17 Blood Pressure 158/67 H 160/88 H Pulse Oximetry 94 95 97 08/02/21 01:00 08/02/21 01:30 08/02/21 02:00 Pulse Rate 100 H 100 H 100 H Respiratory Rate 19 18 18 Blood Pressure 155/67 H 158/72 H 151/63 H Pulse Oximetry 94 94 94 08/02/21 02:30 08/02/21 03:00 08/02/21 03:30 Pulse Rate 98 H 96 H 96 H Respiratory Rate 21 17 18 Blood Pressure 158/61 H 159/72 H 171/73 H Pulse Oximetry 96 96 96 08/02/21 04:00 Pulse Rate 96 H Respiratory Rate 18 Blood Pressure 155/72 H Pulse Oximetry 96 MDM - Extremity Injury (Lower) Lab Data Result diagrams: 08/01/21 19:45 08/01/21 19:45 Labs: Lab Results 08/01/21 08/01/21 08/01/21 Range/Units 19:45 19:45 20:24 WBC 12.3 H (4.5-11.0) X10^3/uL RBC 4.70 (4.5-5.9) X10^6/uL Hgb 14.0 (13.5-17.5) g/dL Hct 42.5 (41-53) % MCV 90.3 (80-100) fL MCH 29.7 (26-34) PG MCHC 32.9 (30-36) % RDW 14.6 (11.6-14.8) % Plt Count 224 (150-400) X10^3/uL Neut % (Auto) 82.4 H (50-75) % Lymph % (Auto) 12.2 L (25-40) % Hancock % (Auto) 4.5 (3-14) % Eos % (Auto) 0.3 L (2-4) % Baso % (Auto) 0.6 (0-2) % Neut # (Auto) 73490 H (5572-7441) /uL Lymph # (Auto) 1500 (7782-4220) /uL Hancock # (Auto) 500 (0-900) /uL Eos # (Auto) 0 (0-450) /uL Baso # (Auto) 100 (0-100) /uL Sodium 136 L (137-145) mmol/L Potassium 4.1 (3.4-5.1) mmol/L Chloride 99 (98-107) mmol/L Carbon Dioxide 18 L (22-32) mmol/L BUN 16 (9-20) mg/dL Creatinine 1.37 H (0.66-1.25) mg/dL Estimated GFR 51.1 L (>60) mL/min BUN/Creatinine Ratio 11.7 (6-22) Glucose 268 H (80-110) mg/dL Calcium 8.7 (8.4-10.2) mg/dL Total Bilirubin 0.8 (0.2-1.3) mg/dL AST 42 (17-59) IU/L ALT 40 (<50) IU/L Alkaline Phosphatase 105 (38-126) U/L Total Protein 7.7 (6.3-8.2) g/dL Albumin 4.5 (3.5-5.0) g/dL Globulin 3.2 (1.7-4.1) g/dL Albumin/Globulin Ratio 1.4 (1.0-2.8) SARS-CoV-2 (PCR) Negative (Negative) Imaging Data Extremity x-ray #1: Radiologist's Impression: PROCEDURE:? XR KNEE LT 1TO2V ? INDICATIONS:? pain/swelling felt a pop ? TECHNIQUE:? 2 views of the knee were acquired.? ? COMPARISON:? None. ? FINDINGS:? ? Bones:? Moderately displaced distal femoral metaphyseal fracture.? There is slightly overriding appearance.? Posterior displacement of the distal fragment .? There is comminuted appearance with a presumed cortical fracture fragment seen at the anterior aspect in the region of the suprapatellar recess. Scattered degenerative subchondral sclerosis and spurring.? Mild medial joint space narrowing.? Chronic appearing ossicles project adjacent to the medial and lateral femoral condyles. ? Soft tissues:? Moderate joint effusion. ? ? IMPRESSION:? Left distal femur fracture.? Moderate joint effusion ? Dictated by: Ventura Kendall M.D. on 08/01/2021 at 19:36? CT Lower EX: Radiologist's Impression: PROCEDURE:? CT LE LT W CON ? INDICATIONS:? distal femur fracture ? TECHNIQUE:? Noncontrast 3 mm axial sections acquired of the left femur , with coronal and sagittal reformats. ? ? COMPARISON:? None. ? FINDINGS:? Image quality:? Excellent.? ? Bones:? Comminuted distal femoral fracture is noted.? There is impacted appearance as well as lateral displacement of the distal fracture fragment. ? ? There is a superimposed lytic lesion measuring 4.4 x 4.0 cm on axial images and 4.9 cm on coronal images. ? Soft tissues:? Large joint effusion is present.? Scattered vascular calcifications. ? IMPRESSION:? ? Comminuted displaced distal femoral pathologic fracture related to a large lytic lesion as detailed above.? Consider further evaluation with bone scan to assess for additional osseous lesions. ? Large joint effusion. ? Dictated by: Ventura Kendall M.D. on 08/01/2021 at 20:26 ? ? MDM Narrative Medical decision making narrative: Patient has known history of metastatic renal cancer with new fracture concern for pathologic fracture. Discussed case with Dr. Mac on-call orthopedics who recommends patient be transferred to [facility] 22:15 Dr. Ho[facility] patient's symptoms test results agrees with transfer but recommends admitting to hospitalist going to [facility] 22:30Dr. Harden, hospitalist updated on patient's symptoms orthopedic recommendation agrees and accepts transfer request but patient not arrive until after 7 am Patient's pain is controlled with Dilaudid Discharge Plan Departure Patient Disposition: [facility] Clinical Impression: Pathologic fracture of femur Prescriptions: No Action CA PANTOTHENATE/FOLIC ACID/VIT (MULTIVITAMIN) 1 tab PO QDAY Qty: 0 0RF [GLUCOSAMINE CHONDROI] 1 tab PO Q DAY Qty: 0 0RF Disabled Parking Permit Qty: 1 0RF metformin [Glucophage] 500 mg tablet 1,000 mg PO BIDCC Qty: 360 3RF carvedilol [Coreg] 25 mg tablet 25 mg PO BID Qty: 180 3RF rosuvastatin [Crestor] 20 mg tablet 20 mg PO Q DAY Qty: 90 3RF alprazolam 0.5 mg tablet See Rx Instructions PO TID PRN (Reason: anxiety) Qty: 30 2RF Dose Instruction: 1-2 tabs PO TID PRN; Rx Instructions: 1-2 tabs PO TID PRN; pioglitazone 30 mg tablet 30 mg PO DAILY Qty: 90 3RF glipizide 10 mg tablet 10 mg PO BID Qty: 60 8RF cabozantinib 20 mg Tablet 40 mg PO DAILY Qty: 30 3RF Cabometyx 40 mg Tablet 40 mg PO DAILY Qty: 30 3RF calcium 500 mg Tablet 500 mg DAILY 0RF Fish Oil Capsule 500 mg PO DAILY 0RF Referrals: Kayden Doyle MD [Primary Care Provider] -
--- NOTE | 2021-08-01 19:35 | DI.CT.S_ITS ---
PROCEDURE: CT LE LT W CON INDICATIONS: distal femur fracture TECHNIQUE: Noncontrast 3 mm axial sections acquired of the left femur , with coronal and sagittal reformats. COMPARISON: None. FINDINGS: Image quality: Excellent. Bones: Comminuted distal femoral fracture is noted. There is impacted appearance as well as lateral displacement of the distal fracture fragment. There is a superimposed lytic lesion measuring 4.4 x 4.0 cm on axial images and 4.9 cm on coronal images. Soft tissues: Large joint effusion is present. Scattered vascular calcifications. IMPRESSION: Comminuted displaced distal femoral pathologic fracture related to a large lytic lesion as detailed above. Consider further evaluation with bone scan to assess for additional osseous lesions. Large joint effusion. Dictated by: Ventura Kendall M.D. on 08/01/2021 at 20:26 Approved by: Ventura Kendall M.D. on 08/01/2021 at 20:31
--- NOTE | 2021-08-01 19:45 | PC.NURSE ---
called Dr [place] for Dr Odell left message @ 1938 he called back @ 1944
[2021-08-01] MEDS: HYDROMORPHONE 1 MG INJ IV ×3 (19:50→23:40)
[2021-08-01 19:56] LABS: Add Manual Diff / Slide Review NO; Basophils Absolute Auto 100 /uL (0-100); Basophils Percent Auto 0.6 % (0-2); Eosinophils Absolute Auto 0 /uL (0-450); Eosinophils Percent Auto 0.3 % (2-4); Hematocrit 42.5 % (41-53); Lymphocytes Absolute Auto 1500 /uL (1100-4500); Lymphocytes Percent Auto 12.2 % (25-40); Mean Corpuscular HGB Conc 32.9 % (30-36); Mean Corpuscular Hemoglobin 29.7 PG (26-34); Mean Corpuscular Volume 90.3 fL (80-100); Monocytes Absolute Auto 500 /uL (0-900); Monocytes Percent Auto 4.5 % (3-14); Neutrophils Absolute Auto 10200 /uL (1500-7000); Neutrophils Percent Auto 82.4 % (50-75); Platelet Count 224 X10^3/uL (150-400); Red Cell Distribution Width 14.6 % (11.6-14.8); White Blood Cell Count 12.3 X10^3/uL (4.5-11.0)
[2021-08-01 20:07] LABS: Alanine Aminotransferase 40 IU/L (<50); Albumin 4.5 g/dL (3.5-5.0); Albumin Globulin Ratio 1.4 (1.0-2.8); Alkaline Phosphatase 105 U/L (38-126); Aspartate Aminotransferase 42 IU/L (17-59); BUN Creatinine Ratio 11.7 (6-22); Bilirubin Total 0.8 mg/dL (0.2-1.3); Blood Urea Nitrogen 16 mg/dL (9-20); Calcium 8.7 mg/dL (8.4-10.2); Carbon Dioxide 18 mmol/L (22-32); Chloride 99 mmol/L (98-107); Estimated Glomerular Filt Rate 51.1 mL/min (>60); Globulin 3.2 g/dL (1.7-4.1); Glucose 268 mg/dL (80-110); HEMOLYSIS < 15 (0-50); Potassium 4.1 mmol/L (3.4-5.1); Sodium 136 mmol/L (137-145); Total Protein 7.7 g/dL (6.3-8.2)
[2021-08-01 20:52] LABS: COVID19 -Nasal RAPID Negative (Negative)
--- NOTE | 2021-08-01 21:40 | PC.NURSE ---
initiated transfter process to [facility] @ 2101 Nurse called back @ [address] Odell, [facility] orthopedist will call dr Odell back.
--- NOTE | 2021-08-01 22:13 | PC.NURSE ---
Dr Ho from [facility] called to speak with Dr Odell
[2021-08-02] VITALS (19 sets, daily range): BP systolic 141–176; BP diastolic 61–88; PULSE 85–120; RESP 13–26; O2SAT 94–98
[2021-08-02] MEDS: SODIUM CHLORIDE 0.9% 1,000 ML 125 ML IV (00:28)
--- NOTE | 2021-08-02 01:06 | PC.NURSE ---
0100 distal cms intact to injured ext after knee immob applied per order
[2021-08-02] MEDS: HYDROMORPHONE 1 MG INJ IV ×2 (04:57→08:10)
--- NOTE | 2021-08-02 07:44 | PC.NURSE ---
Report called to VALENTINO Koo at [phone]
--- NOTE | 2021-08-02 07:45 | PC.NURSE ---
Pt remains stable, reports good pain relief with knee immobilizer to L leg and occasional doses of dilaudid 1 mg. Palpable pedal pulses.
== END 2021-08-02 08:10 | disposition short-term general hospital (02) ==
PROVIDERS: Emergency Provider Emergency Medicine; PCP Internal Medicine
DX: M84.452A Pathological fracture, left femur, initial encounter for fracture (principal); Z20.822 Contact with and (suspected) exposure to COVID-19
CPT/HCPCS: 36415; 73560; 73700; 80053; 82962; 85025; 87635; 96361; 96374; 96376; 99284; 99285; C9803; J1170